=== PATIENT | female | born 1980 | race Caucasian/White ===

== ENCOUNTER 2016-09-23 01:24 | Emergency (ER) | payer BC, OTHER ==
[~2016-09-23] VITALS: Ht 162.6 cm; Wt 77.0 kg
[~2016-09-23 01:24] MED LIST: IND10; NALT50TA4; TOPI25TA38; [UNRECOGNIZED DRUG - CODE] IM
[2016-09-23 01:28] VITALS: Ht 162.6 cm; Wt 77.0 kg
[2016-09-23] MEDS ORDERED: ONDANSETRON (ODT) 4 MG TAB ODT STA (01:55)
[2016-09-23] MEDS ORDERED: ACET/BUTAL/CAFF TAB PO ONE (02:00)
--- NOTE | 2016-09-23 02:53 | ERD ---
ER Documentation Chief Complaint Date/Time DATE: 09/23/16 TIME: 02:49 Chief Complaint dizziness x 2 days, headache since 5 hours ago HPI 36-year-old female presented to emergency department for complaints of headache started 2 days ago, and dizziness. Patient is currently in treatment for Antabuse and Topamax for alcohol withdrawal. Patient describes the headache as throbbing pain, 6/10 scale, worse upon seeing light, accompanied with photosensitivity. Patient denies any fever or chills. ROS All systems reviewed and are negative except as per history of present illness. Medications Home Meds Reported Medications Naltrexone Hcl (Depade) 50 Mg Tablet, DAILY 09/21/13 Propranolol Hcl* (Inderal*) 10 Mg Tab, DAILY 09/21/13 Topiramate* (Topamax*) 25 Mg Tablet, DAILY 09/21/13 Medroxyprogesterone Acet (Depo-Provera) 150 Mg/Ml Vial, IM [id number] 12/08/11 Allergies Allergies: Coded Allergies: No Known Allergy (Unverified , 06/10/12) PMhx/Soc History of Surgery: No Anesthesia Reaction: No Hx Neurological Disorder: No Hx Respiratory Disorders: No Hx Cardiac Disorders: No Hx Psychiatric Problems: Yes (BIPOLAR) Hx Miscellaneous Medical Probl: Yes (GASTRIC BYPASS, recovering alcoholic) Hx Alcohol Use: Yes (recovering since 09/10/16) Hx Substance Use: No Hx Tobacco Use: No Smoking Status: Never smoker FmHx Family History: No coronary disease, No diabetes, No other Physical Exam Vitals Vital Signs Date Time Temp Pulse Resp B/P Pulse Ox O2 Delivery O2 Flow Rate FiO2 09/23/16 01:28 98.5 78 20 123/74 98 Physical Exam GENERAL: The patient is well developed and appropriate for usual state of health, in no apparent distress. CHEST: Clear to auscultation bilaterally. There are no rales, wheezes or rhonchi. HEART: Regular rate and rhythm. No murmurs, clicks, rubs or gallops. No S3 or S4. ABDOMEN: Soft, nontender and nondistended. Good bowel sounds. No rebound or guarding. No gross peritonitis. No gross organomegaly or masses. No Dorado sign or McBurney point tenderness. BACK: No midline or flank tenderness. EXTREMITIES: Equal pulses bilaterally. There is no peripheral clubbing, cyanosis or edema. No focal swelling or erythema. Full range of motion. Grossly neurovascularly intact. NEURO: Alert and oriented. Cranial nerves 2-12 intact. Motor strength in all 4 extremities with 5/5 strength. Sensation grossly intact. Normal speech and gait. SKIN: There is no apparent rash or petechia. The skin is warm and dry. HEMATOLOGIC AND LYMPHATIC: There is no evidence of excessive bruising or lymphedema. No gross cervical, axillary, or inguinal lymphadenopathy. Results 24 hrs Current Medications Medications (Trade) Dose Ordered Sig/Waldo Route PRN Reason Start Time Stop Time Status Last Admin Dose Admin Ondansetron HCl (Zofran Odt) 4 mg ONCE STAT ODT 09/23/16 01:55 09/23/16 01:57 DC 09/23/16 02:41 Acetaminophen/ Butalbital/ Caffeine (Fioricet) 1 tab ONCE ONCE PO 09/23/16 02:00 09/23/16 02:01 DC 09/23/16 02:41 Patient was given Zofran here in the emergency department. After treatment, patient was able to tolerate po fluids here in the emergency department without any vomiting. There is no signs and symptoms of dehydration. Patient was given medication for pain here in emergency department, after treatment, patient verbalized feeling much better. Patient's pain is improved. PROCEDURE: CT BRAIN WITHOUT CONTRAST CLINICAL INDICATION: 36-year-old female with headaches. TECHNIQUE: The study was performed utilizing a [employer] VCT 64-slice CT scanner. Direct axial sections were obtained from the foramen magnum to the vertex without the use of intravenous contrast material. Sagittal and coronal reformations were obtained. One or more the following dose reduction techniques were utilized: automated exposure control, adjustment of the mA and/or kV according to patient's size or use of iterative reconstruction technique. The images were viewed on a PACS workstation. CTD/vol = 44.2 mGy; Total Exam DLP = 720.2 mGy-cm. COMPARISON: CT brain September 21, 2013. FINDINGS: The ventricles have a normal size, shape and position. There is no evidence for mass effect or midline shift. There are no intracranial areas of abnormal attenuation. There is no evidence for acute intra or extra-axial blood. The bony calvarium is intact. There is mild focal mucosal thickening within a septated left sphenoid sinus. The rest of the paranasal sinuses are without evidence for abnormal mucosal thickening. No air-fluid levels are noted. The mastoid air cells are without significant soft tissue. IMPRESSION: 1. The intracranial contents are unremarkable on this noncontrast CT scan of the brain. 2. Mild focal mucosal thickening within a septated left sphenoid sinus. .Galileo Bo MD, MD Date Time Electronically viewed and signed by .Galileo Bo MD, on 09/23/2016 02:56 .M/ CC: JOVANNY CIFUENTES [employer] Procedures/MDM Medical Decision Making: Patient symptoms are consistent with migraine headache , possible tension headache, and also from the left splenic sinusitis noted in the CT scan. There is low suspicion for neurological emergencies at this time since patients neurologic exam is normal. Patient did not have any altered level consciousness, vomiting, changes in balance or memory and did not have any head injury. Patients CT scan of the head does not show any neurological emergencies at this time. Rx: Fioricet Zofran, Amoxicillin Dispostion: Home. Stable Departure Diagnosis: Primary Impression: Headache Headache type: unspecified Headache chronicity pattern: acute headache Intractability: not intractable Qualified Code: R51 - Acute nonintractable headache, unspecified headache type Additional Impression: Sinusitis Sinusitis location: sphenoidal Chronicity: acute Recurrence: non- recurrent Qualified Code: J01.30 - Acute non-recurrent sphenoidal sinusitis Condition: Stable Patient Instructions: Acute Sinusitis, Self-Care for Headaches JOVANNY CIFUENTES NP Sep 23, 2016 02:53
--- NOTE | 2016-09-23 02:56 | RADRPT ---
PROCEDURE: CT BRAIN WITHOUT CONTRAST CLINICAL INDICATION: 36-year-old female with headaches. TECHNIQUE: The study was performed utilizing a [employer] VCT 64-slice CT scanner. Direct axia l sections were obtained from the foramen magnum to the vertex without the use of intravenous contra st material. Sagittal and coronal reformations were obtained. One or more the following dose reduct ion techniques were utilized: automated exposure control, adjustment of the mA and/or kV according t o patient's size or use of iterative reconstruction technique. The images were viewed on a PACS [employer]. CTD/vol = 44.2 mGy; Total Exam DLP = 720.2 mGy-cm. COMPARISON: CT brain September 21, 2013. FINDINGS: The ventricles have a normal size, shape and position. There is no evidence for mass effect or midl ine shift. There are no intracranial areas of abnormal attenuation. There is no evidence for acute intra or extra-axial blood. The bony calvarium is intact. There is mild focal mucosal thickening wi thin a septated left sphenoid sinus. The rest of the paranasal sinuses are without evidence for abn ormal mucosal thickening. No air-fluid levels are noted. The mastoid air cells are without signifi cant soft tissue. IMPRESSION: 1. The intracranial contents are unremarkable on this noncontrast CT scan of the brain. 2. Mild focal mucosal thickening within a septated left sphenoid sinus. .Galileo Bo MD, Date Time Electronically viewed and signed by .Galileo Bo MD, on 09/23/2016 02:56 .M/
[2016-09-23] MEDS ORDERED: AMO500 PO (03:51)
[2016-09-23] MEDS ORDERED: ONDA4TAB14 PO (03:51)
[2016-09-23] MEDS ORDERED: FIORICET PO (03:51)
== END 2016-09-24 04:05 | disposition home or self-care (01) ==
LOC: FTE 01:24
DX: R51 Headache (principal); J01.30 Acute sphenoidal sinusitis, unspecified
CPT/HCPCS: 70450; 99284; Z7610

== ENCOUNTER 2016-10-28 19:34 | Emergency (ER) | payer BC ==
[~2016-10-28] VITALS: Ht 170.2 cm; Wt 73.5 kg
[~2016-10-28 19:34] MED LIST changes: +AMO500 PO; +FIORICET PO; +ONDA4TAB14 PO
[2016-10-28 19:46] VITALS: Ht 170.2 cm; Wt 73.5 kg
[2016-10-28] MEDS ORDERED: TOPI100C5 PO (21:03)
[2016-10-28] MEDS ORDERED: GABA100C14 PO (21:04)
[2016-10-28] MEDS ORDERED: ANTA250 PO (21:07)
[2016-10-28] MEDS ORDERED: VIVITROL PO (21:13)
[2016-10-28] MEDS ORDERED: VIVITROL 380 MG IM (21:21)
[2016-10-28] MEDS ORDERED: TREX50 PO (21:22)
[2016-10-28] MEDS ORDERED: ONDANSETRON 4 MG INJ IV STA (21:44)
--- NOTE | 2016-10-28 21:57 | ERD ---
ER Documentation Chief Complaint Date/Time DATE: 10/28/16 TIME: 21:54 Chief Complaint etoh intoxication HPI Patient is a 36-year-old female who was found in her apartment intoxicated and surrounded by alcohol bottles. She was also noted to have a rash and to have shivering. The patient has a history of alcohol abuse, and recently relapsed and began drinking again last night. The patient reports that she has had several episodes of vomiting. She takes Antabuse, Vivitrol, and Topamax. She stopped taking Antabuse 4 days ago in anticipation of drinking. She was previously on depot Vivitrol, but it is no longer covered by her insurance and so she takes oral naltrexone. She did not take her medication for several days. She denies ingestion of drugs or overdose on medication. She denies suicidality. She acknowledges feeling depressed. She denies abdominal pain, fever, back pain. She denies fall or injury. According to her mother, she has been in close touch with her psychiatrist who does not believe the patient is suicidal. The psychiatrist recommended coming to the ER when the patient was found lethargic in her apartment. ROS All systems reviewed and are negative except as per history of present illness. Medications Home Meds Active Scripts Famotidine* (Pepcid*) 20 Mg Tablet, 20 MG PO BID for 4 Days, TAB Prov:MAMIE BROWN MD 10/28/16 Ondansetron Hcl* (Zofran*) 4 Mg Tablet, 4 MG PO Q8H Y for NAUSEA AND/OR VOMITING , #12 TAB Prov:MAMIE BROWN MD 10/28/16 Reported Medications Naltrexone Hcl (Trexan) 50 Mg Tab, 50 MG PO DAILY, TAB 10/28/16 [Vivitrol 380MG] No Conflict Check, 380 MG IM [id number] 10/28/16 Disulfiram (Antabuse) 250 Mg Tablet, 250 MG PO DAILY, #30 TAB 10/28/16 Gabapentin* (Gabapentin*) 100 Mg Capsule, 100 MG PO QHS Y for PRN, #90 CAP 10/28/16 Topiramate (Topiramate ER) 100 Mg Cap.spr.24, 100 MG PO QHS 10/28/16 Discontinued Reported Medications [Vivitrol 100MG] No Conflict Check, 100 MG PO DAILY 10/28/16 Naltrexone Hcl (Depade) 50 Mg Tablet, DAILY 09/21/13 Propranolol Hcl* (Inderal*) 10 Mg Tab, DAILY 09/21/13 Topiramate* (Topamax*) 25 Mg Tablet, DAILY 09/21/13 Medroxyprogesterone Acet (Depo-Provera) 150 Mg/Ml Vial, IM [id number] 12/08/11 Discontinued Scripts Ondansetron (Ondansetron Odt) 4 Mg Tab.rapdis, 4 MG PO Q8 Y for NAUSEA AND/OR VOMITING, #30 TAB Prov:JOVANNY CIFUENTES NP 09/23/16 Amoxicillin* (Amoxicillin*) 500 Mg Cap, 500 MG PO TID for 10 Days, CAP Prov:JOVANNY CIFUENTES NP 09/23/16 Acetamin/Butalbital/Caffeine* (Fioricet*) [id number] Tab, 1 TAB PO Q6H Y for PAIN, #30 TAB Prov:JOVANNY CIFUENTES NP 09/23/16 Allergies Allergies: Coded Allergies: No Known Allergy (Unverified , 10/28/16) PMhx/Soc Past medical history: Alcoholism, depression Past surgical history: Denies Social history: Drinks alcohol, denies tobacco or illicit drugs History of Surgery: No Anesthesia Reaction: No Hx Neurological Disorder: No Hx Respiratory Disorders: No Hx Cardiac Disorders: No Hx Psychiatric Problems: Yes (BIPOLAR) Hx Miscellaneous Medical Probl: Yes (GASTRIC BYPASS, recovering alcoholic) Hx Alcohol Use: Yes (recovering since 09/10/16) Hx Substance Use: No Hx Tobacco Use: No FmHx Family History: No coronary disease, No diabetes Physical Exam Vitals Vital Signs Date Time Temp Pulse Resp B/P Pulse Ox O2 Delivery O2 Flow Rate FiO2 10/28/16 19:46 97.2 92 20 136/66 97 Physical Exam Const: Alert, no acute distress Head: Atraumatic Eyes: Normal Conjunctiva, no pallor, no icterus ENT: Normal External Ears, Nose and Mouth. Neck: Full range of motion..~ No meningismus. Resp: Clear to auscultation bilaterally, no wheezes, no rales Cardio: Regular rate and rhythm, no murmurs Abd: Soft, non tender, non distended. Skin: No petechiae, subtle macular rash diffusely. Back: No midline or flank tenderness Ext: No cyanosis, or edema Neur: Awake and alert, cranial nerves II through XII intact bilaterally, strength and sensation full in 4 extremities Psych: Slightly depressed affect Result Diagram: 10/28/162143 Results 24 hrs Laboratory Tests Test 10/28/16 21:44 Sodium Level 144mmol/L Potassium Level 4.1mmol/L Chloride Level 102mmol/L Carbon Dioxide Level 23mmol/L Anion Gap 23 Blood Urea Nitrogen 4mg/dl Creatinine 0.60mg/dl Glucose Level 75mg/dl Calcium Level 8.8mg/dl Current Medications Medications (Trade) Dose Ordered Sig/Waldo Route PRN Reason Start Time Stop Time Status Last Admin Dose Admin Sodium Chloride (NS) 1,000 ml @ 1,000 mls/hr Q1H ONCE IV 10/28/16 22:00 10/28/16 22:59 DC 10/28/16 23:02 Ondansetron HCl (Zofran Inj) 4 mg ONCE STAT IV 10/28/16 21:44 10/28/16 21:46 DC 10/28/16 23:02 Famotidine (Pepcid Iv) 20 mg ONCE ONCE IV 10/28/16 22:00 10/28/16 22:01 DC 10/28/16 23:02 Lorazepam (Ativan) 1 mg ONCE ONCE IV 10/28/16 23:30 10/28/16 23:31 Procedures/MDM MDM: Patient is a 36-year-old female with history of alcoholism who presents to the ER with alcohol intoxication after recent relapse. She experienced several episodes of vomiting. She does take Antabuse, but has not taken it for several days, so she is unlikely to be experiencing acetaldehyde toxicity. She has no evidence of dehydration or electrolyte abnormalities. She denies abdominal pain and has benign exam. She has normal vital signs. There are no signs of trauma. Patient denies suicidality. The patient is alert, oriented, and acting appropriately in the ER. I will give her IV fluids and comfort meds. She will be discharged home with her mother and is advised to follow-up closely with her psychiatrist for further management of her alcoholism. Departure Diagnosis: Primary Impression: Alcoholic intoxication Complication of substance-induced condition: uncomplicated Qualified Code: F10.120 - Alcoholic intoxication, uncomplicated Condition: MAMIE Hernandez MD Oct 28, 2016 21:56
[2016-10-28] MEDS ORDERED: FAMOTIDINE 20 MG INJ IV ONE (22:00)
[2016-10-28] MEDS ORDERED: SOD CHLORIDE 0.9% 1,000 ML IV ONE (22:00)
[2016-10-28 22:24] LABS: CALCIUM 8.8 mg/dl (8.4-10.2); CREATININE 0.6 mg/dl (0.44-1.00); POTASSIUM 4.1 mmol/L (3.5-5.1)
[2016-10-28] MEDS ORDERED: FAMO-96 PO (23:06)
[2016-10-28] MEDS ORDERED: ONDA4TAB8 PO (23:06)
[2016-10-28] MEDS ORDERED: LORAZEPAM 2 MG INJ IV ONE (23:30)
[2016-10-29 00:44] VITALS: BP 125/78; PULSE 67; RESP 18; TEMP 98.4
== END 2016-10-29 00:05 | disposition home or self-care (01) ==
LOC: E/R 19:34
DX: F10.120 Alcohol abuse with intoxication, uncomplicated (principal); R11.10 Vomiting, unspecified
CPT/HCPCS: 36415; 80048; 96361; 96374; 96375; J2405; J7030; Z7502; Z7610

== ENCOUNTER 2017-08-16 17:54 | Emergency (ER) | END 2017-08-17 00:29 | disposition home or self-care (01) ==